=== PATIENT | male | born 1950 | race Asian ===

== ENCOUNTER 2017-07-30 11:38 | Inpatient (IN) | payer MEDICARE, OTHER ==
[~2017-07-30] VITALS: Ht 167.6 cm; Wt 85.2 kg
[~2017-07-30 11:38] MED LIST: ACET-784 PO; ASPI81 PO; ATOR40TA28 PO; BISA10S PR; CARV12.530 PO; FURO40I IV; HYDR20I IVP; INSLAN SQ; IPRNEB IH; ISOS30TA6 PO; LISI-660 PO; MOM30 PO; MORP2CAR IV; ONDA4 PO; PANT40TA25 PO
[2017-07-30] MEDS ORDERED: ALBU8.5H8 IH (12:15)
[2017-07-30] MEDS ORDERED: POTASSIUM CHLORIDE 20 MEQ ER TABLET PO ONE (13:15)
[2017-07-30] MEDS ORDERED: CloNIDine HCL 0.2 MG TABLET PO ONE (13:15)
[2017-07-30 14:22] LABS: EOSINOPHILS % (AUTO) 1.3 % (1.0-6.0); HEMATOCRIT 40.4 % (41-53); HEMOGLOBIN 14.3 g/dL (13.5-17.5); LYMPHOCYTES # (AUTO) 1.5 K/uL (1.0-4.8); LYMPHOCYTES % (AUTO) 20.4 % (22.0-44.0); MEAN CORPUSCULAR HGB CONC 35.3 G/dL (31.0-37.0); MEAN CORPUSCULAR VOLUME 88 fL (80-100); MONOCYTES # (AUTO) 0.4 K/uL (0.1-1.0); NEUTROPHILS # (AUTO) 5.2 K/uL (1.8-7.7); NEUTROPHILS % (AUTO) 71.3 % (40.0-70.0); PLATELET COUNT (AUTO) 205 K/uL (150-450); RED CELL DISTRIBUTION WIDTH 13.2 % (11.5-14.5)
[2017-07-30 14:46] LABS: B-TYPE NATRIURETIC PEPTIDE 1620 pg/mL (0-100)
[2017-07-30 14:57] LABS: ALANINE AMINOTRANSFERASE 31 U/L (12-78); ALBUMIN 1.7 g/dL (3.4-5.0); ALKALINE PHOSPHATASE 83 U/L (46-116); ANION GAP 1 mmol/L (8-16); ASPARTATE AMINOTRANSFERASE 33 U/L (15-37); BILIRUBIN,TOTAL 0.5 mg/dL (0.1-1.0); CALCIUM, TOTAL 7.5 mg/dL (8.8-10.5); CHLORIDE 98 mmol/L (98-107); CREATINE KINASE MB 2.5 ng/mL (0-5); CREATINE KINASE, TOTAL 192 U/L (39-308); CREATININE 1.02 mg/dL (0.60-1.30); GLOMERULAR FILTR. RATE CALC > 60 mL/min (>60); GLUCOSE,RANDOM 325 mg/dL (70-110); SODIUM SERUM 140 mmol/L (136-145); TOTAL PROTEIN, SERUM 5.4 g/dL (6.4-8.2); UREA NITROGEN, BLOOD 13 mg/dL (7-18)
[2017-07-30 15:04] LABS: POTASSIUM 2.4 mmol/L (3.5-5.1)
[2017-07-30 15:05] LABS: CARBON DIOXIDE 41 mmol/L (22-29)
[2017-07-30] MEDS ORDERED: INSULIN REGULAR, HUMAN 100 UNITS/ML IVP ONE (16:00)
[2017-07-30] MEDS ORDERED: FUROSEMIDE 40 MG/4 ML VIAL IVP ONE (16:00)
[2017-07-30] MEDS ORDERED: 0.9% SODIUM CHLORIDE 10 ML SYRINGE IVP PRN (16:15)
[2017-07-30] MEDS ORDERED: ACETAMINOPHEN 325 MG TABLET PO PRN (16:15)
[2017-07-30] MEDS ORDERED: ONDANSETRON HCL 4 MG/2 ML VIAL IVP PRN (16:15)
[2017-07-30 17:10] VITALS: BP 146/65
[2017-07-30] MEDS ORDERED: DEXTROSE 50%-WATER 25 GM/50 ML SYRINGE IVP PRN ×2 (18:45→21:00)
[2017-07-30] MEDS ORDERED: MAGNESIUM SULFATE 4 GM/WATER 100 ML IV PRN ×2 (18:45→21:00)
[2017-07-30] MEDS ORDERED: GLUCAGON,HUMAN RECOMBINANT 1 MG VIAL IM PRN (18:45)
[2017-07-30] MEDS ORDERED: POTASSIUM CHL 10 MEQ/WATER 50 ML IV PRN (18:45)
[2017-07-30] MEDS ORDERED: INSULIN LISPRO 100 UNITS/ML SQ PRN (18:45)
[2017-07-30] MEDS ORDERED: MAGNESIUM SULFATE 2 GM in DEXTROSE 5%-WATER 50 ML IV PRN ×2 (18:45→21:00)
[2017-07-30 19:21] LABS: ALBUMIN 1.7 g/dL (3.4-5.0)
[2017-07-30 19:23] LABS: POTASSIUM 2.3 mmol/L (3.5-5.1)
[2017-07-30] MEDS ORDERED: CARV12 PO (19:25)
[2017-07-30] MEDS ORDERED: ISOS10TA16 PO (19:25)
[2017-07-30] MEDS ORDERED: FURO20 PO (19:25)
[2017-07-30] MEDS ORDERED: VITAD1000 PO (19:25)
[2017-07-30] MEDS ORDERED: PANT40TA25 PO (19:25)
[2017-07-30] MEDS ORDERED: SODIUM CHLORIDE 0.9% 100 ML ONE (19:46)
[2017-07-30 20:09] VITALS: BP 149/76
[2017-07-30 20:13] LABS: GLUCOMETER DEV NAME(LOC) 5N 1P; GLUCOSE,POINT OF CARE 349 MG/DL (70-110)
[2017-07-30] MEDS ORDERED: POTASSIUM CHLORIDE 20 MEQ ER TABLET PO PRN (21:00)
[2017-07-30] MEDS ORDERED: MAGNESIUM OXIDE 400 MG TABLET PO PRN (21:00)
[2017-07-30] MEDS: CARVEDILOL 12.5 MG TABLET PO SCH (22:04)
[2017-07-30] MEDS: POTASSIUM CHLORIDE 20 MEQ ER TABLET PO PRN (22:05)
[2017-07-30] MEDS: INSULIN LISPRO 100 UNITS/ML SQ PRN (22:06)
[2017-07-30 23:03] LABS: GLUCOMETER DEV NAME(LOC) 5S 2Q; GLUCOSE,POINT OF CARE 245 MG/DL (70-110)
[2017-07-31] VITALS (7 sets, daily range): BP systolic 106–155; BP diastolic 49–96
[2017-07-31 02:27] LABS: MAGNESIUM 1.5 mg/dL (1.80-2.40)
[2017-07-31 02:39] LABS: POTASSIUM 2.7 mmol/L (3.5-5.1)
[2017-07-31] MEDS: POTASSIUM CHLORIDE 20 MEQ ER TABLET PO PRN ×2 (03:00→10:50)
[2017-07-31] MEDS: MAGNESIUM OXIDE 400 MG TABLET PO PRN ×3 (03:00→20:56)
[2017-07-31 06:33] LABS: GLUCOMETER DEV NAME(LOC) 5N 1P; GLUCOSE,POINT OF CARE 58 MG/DL (70-110)
[2017-07-31 06:33] LABS: GLUCOMETER DEV NAME(LOC) 5N 1P; GLUCOSE,POINT OF CARE 204 MG/DL (70-110)
[2017-07-31] MEDS: FUROSEMIDE 40 MG/4 ML VIAL IVP SCH (08:36)
[2017-07-31] MEDS: CARVEDILOL 12.5 MG TABLET PO SCH ×2 (08:47→20:56)
[2017-07-31] MEDS: ATORVASTATIN CALCIUM 40 MG TABLET PO SCH (08:47)
[2017-07-31] MEDS: PANTOPRAZOLE SODIUM 40 MG DR TABLET PO SCH (08:48)
[2017-07-31] MEDS: CHOLECALCIFEROL (VIT D3) 1,000 UNITS TABLET PO SCH (08:48)
[2017-07-31] MEDS: ASPIRIN 81 MG CHEWABLE TABLET PO SCH (08:48)
[2017-07-31] MEDS ORDERED: FUROSEMIDE 20 MG TABLET PO SCH (09:00)
[2017-07-31] MEDS ORDERED: LISINOPRIL 5 MG TABLET PO SCH (09:00)
[2017-07-31] MEDS: LISINOPRIL 10 MG TABLET PO SCH (09:51)
[2017-07-31] MEDS: ISOSORBIDE DINITRATE 10 MG TABLET PO SCH (10:49)
[2017-07-31] MEDS: INSULIN LISPRO 100 UNITS/ML SQ PRN ×3 (12:49→21:01)
[2017-07-31] MEDS: INSULIN GLARGINE,HUM.REC.ANLOG 100 UNITS/ML SQ SCH (20:58)
[2017-08-01 05:30] VITALS: BP 178/77
[2017-08-01 07:18] LABS: GLUCOMETER DEV NAME(LOC) 5S 2Q; GLUCOSE,POINT OF CARE 72 MG/DL (70-110)
[2017-08-01 07:18] LABS: GLUCOMETER DEV NAME(LOC) 5S 2Q; GLUCOSE,POINT OF CARE 374 MG/DL (70-110)
[2017-08-01 07:18] LABS: GLUCOMETER DEV NAME(LOC) 5S 2Q; GLUCOSE,POINT OF CARE 252 MG/DL (70-110)
[2017-08-01 07:34] VITALS: BP 152/76
[2017-08-01 07:57] LABS: EOSINOPHILS % (AUTO) 1.6 % (1.0-6.0); HEMATOCRIT 37.1 % (41-53); LYMPHOCYTES # (AUTO) 1.9 K/uL (1.0-4.8); LYMPHOCYTES % (AUTO) 24.8 % (22.0-44.0); MEAN CORPUSCULAR HEMOGLOBIN 30.7 pg (26.0-34.0); MEAN CORPUSCULAR VOLUME 88 fL (80-100); MONOCYTES # (AUTO) 0.5 K/uL (0.1-1.0); NEUTROPHILS # (AUTO) 5.1 K/uL (1.8-7.7); NEUTROPHILS % (AUTO) 66.6 % (40.0-70.0); PLATELET COUNT (AUTO) 193 K/uL (150-450); RED BLOOD CELL COUNT(AUTO) 4.23 MIL/uL (4.50-5.90)
[2017-08-01 08:18] LABS: ALANINE AMINOTRANSFERASE 20 U/L (12-78); ALBUMIN 1.4 g/dL (3.4-5.0); ALKALINE PHOSPHATASE 64 U/L (46-116); ANION GAP -1 mmol/L (8-16); ASPARTATE AMINOTRANSFERASE 18 U/L (15-37); BILIRUBIN,TOTAL 0.3 mg/dL (0.1-1.0); CALCIUM, TOTAL 7.2 mg/dL (8.8-10.5); CARBON DIOXIDE 39 mmol/L (22-29); CHLORIDE 100 mmol/L (98-107); CREATININE 0.88 mg/dL (0.60-1.30); GLOMERULAR FILTR. RATE CALC > 60 mL/min (>60); GLUCOSE,RANDOM 140 mg/dL (70-110); POTASSIUM 3.1 mmol/L (3.5-5.1); SODIUM SERUM 138 mmol/L (136-145); TOTAL PROTEIN, SERUM 4.6 g/dL (6.4-8.2); UREA NITROGEN, BLOOD 20 mg/dL (7-18)
[2017-08-01] MEDS: LISINOPRIL 10 MG TABLET PO SCH (08:35)
[2017-08-01] MEDS: ASPIRIN 81 MG CHEWABLE TABLET PO SCH (08:35)
[2017-08-01] MEDS: ATORVASTATIN CALCIUM 40 MG TABLET PO SCH (08:36)
[2017-08-01] MEDS: CHOLECALCIFEROL (VIT D3) 1,000 UNITS TABLET PO SCH (08:36)
[2017-08-01] MEDS: PANTOPRAZOLE SODIUM 40 MG DR TABLET PO SCH (08:36)
[2017-08-01] MEDS: MAGNESIUM OXIDE 400 MG TABLET PO PRN ×2 (08:37→13:05)
[2017-08-01] MEDS: FUROSEMIDE 40 MG/4 ML VIAL IVP SCH ×2 (08:38→14:06)
[2017-08-01] MEDS ORDERED: POTASSIUM CHLORIDE 20 MEQ ER TABLET PO SCH (09:00)
[2017-08-01] MEDS: CARVEDILOL 12.5 MG TABLET PO SCH ×2 (09:18→20:22)
[2017-08-01] MEDS: ISOSORBIDE DINITRATE 10 MG TABLET PO SCH (10:36)
[2017-08-01] MEDS: POTASSIUM CHLORIDE 20 MEQ ER TABLET PO PRN ×2 (10:36→14:06)
[2017-08-01 11:30] VITALS: BP 146/68
[2017-08-01] MEDS: INSULIN LISPRO 100 UNITS/ML SQ PRN ×2 (12:11→17:54)
[2017-08-01 12:53] LABS: GLUCOMETER DEV NAME(LOC) 5N 1P; GLUCOSE,POINT OF CARE 349 MG/DL (70-110)
[2017-08-01 15:38] VITALS: BP 143/66
[2017-08-01] MEDS ORDERED: KDUR20 PO (20:02)
[2017-08-01] MEDS ORDERED: FURO40 PO (20:03)
[2017-08-01 20:05] VITALS: BP 165/84
[2017-08-01] MEDS: INSULIN GLARGINE,HUM.REC.ANLOG 100 UNITS/ML SQ SCH (20:22)
[2017-08-01 22:23] LABS: GLUCOMETER DEV NAME(LOC) 5S 2Q; GLUCOSE,POINT OF CARE 196 MG/DL (70-110)
[2017-08-02 06:33] LABS: GLUCOMETER DEV NAME(LOC) 5N 1P; GLUCOSE,POINT OF CARE 236 MG/DL (70-110)
== END 2017-08-01 21:15 | disposition home or self-care (01) | DRG 640 ==
LOC: EMS 11:40 → 5N 16:01
PROVIDERS: ADMIT Hospitalist; ATTEND Hospitalist
DX: E87.6 Hypokalemia (principal); I50.43 Acute on chronic combined systolic (congestive) and diastolic (congestive) heart failure; J44.9 Chronic obstructive pulmonary disease, unspecified; E11.65 Type 2 diabetes mellitus with hyperglycemia; I11.0 Hypertensive heart disease with heart failure; I25.10 Atherosclerotic heart disease of native coronary artery without angina pectoris; K21.9 Gastro-esophageal reflux disease without esophagitis; E78.5 Hyperlipidemia, unspecified; F17.210 Nicotine dependence, cigarettes, uncomplicated; Z95.1 Presence of aortocoronary bypass graft; Z88.1 Allergy status to other antibiotic agents; Z79.82 Long term (current) use of aspirin; Z79.84 Long term (current) use of oral hypoglycemic drugs; Z79.899 Other long term (current) drug therapy
CPT/HCPCS: 71046; 83735; 84132; 93005; 93306; 96374; 96375; 99291; J1815; J1940; J3480; J7050

== ENCOUNTER 2019-08-26 13:46 | Inpatient (IN) | payer MEDICARE, OTHER ==
[~2019-08-26] VITALS: Ht 167.6 cm; Wt 61.4 kg
[~2019-08-26 13:46] MED LIST changes: +ALBU8HFA IH; +AMLO10TA7 PO; +ASPI-728 PO; -ASPI81 PO; -BISA10S PR; +BISA10SU11 PR; +CARV12 PO; -CARV12.530 PO; +CHOL100018 PO; +FURO40 PO; -FURO40I IV; -HYDR20I IVP; +HYDR25TA84 PO; -INSLAN SQ; -IPRNEB IH; +ISOS10TA16 PO; -ISOS30TA6 PO; -LISI-660 PO; -MOM30 PO; -MORP2CAR IV; -ONDA4 PO; +PANT-31 PO; -PANT40TA25 PO; +PRED10 PO; +PRED20 PO; +PRED5 PO
[2019-08-26] MEDS ORDERED: NITROGLYCERIN 2% (1 GM=INCH) PACKET TP ONE (15:00)
[2019-08-26] MEDS ORDERED: FUROSEMIDE 40 MG/4 ML VIAL IVP ONE (15:00)
[2019-08-26] MEDS ORDERED: ASPIRIN 325 MG TABLET PO ONE (15:00)
[2019-08-26 15:11] LABS: BASOPHILS % (AUTO) 0.6 % (0.0-2.0); EOSINOPHILS % (AUTO) 0.6 % (1.0-6.0); HEMATOCRIT 45.5 % (41-53); HEMOGLOBIN 15.3 g/dL (13.5-17.5); LYMPHOCYTES # (AUTO) 1.3 K/uL (1.0-4.8); LYMPHOCYTES % (AUTO) 16.8 % (22.0-44.0); MEAN CORPUSCULAR HGB CONC 33.6 G/dL (31.0-37.0); MEAN CORPUSCULAR VOLUME 89 fL (80-100); MONOCYTES # (AUTO) 0.5 K/uL (0.1-1.0); MONOCYTES % (AUTO) 6.1 % (2.0-9.0); NEUTROPHILS # (AUTO) 5.8 K/uL (1.8-7.7); NEUTROPHILS % (AUTO) 75.9 % (40.0-70.0); PLATELET COUNT (AUTO) 210 K/uL (150-450); RED BLOOD CELL COUNT(AUTO) 5.09 MIL/uL (4.50-5.90); RED CELL DISTRIBUTION WIDTH 13.6 % (11.5-14.5)
[2019-08-26 15:25] LABS: ALANINE AMINOTRANSFERASE 18 U/L (12-78); ALBUMIN 2.3 g/dL (3.4-5.0); ALKALINE PHOSPHATASE 95 U/L (46-116); ANION GAP 10 mmol/L (8-16); ASPARTATE AMINOTRANSFERASE 20 U/L (15-37); BILIRUBIN,TOTAL 0.5 mg/dL (0.1-1.0); CARBON DIOXIDE 28 mmol/L (22-29); CHLORIDE 99 mmol/L (98-107); CREATININE 2.14 mg/dL (0.60-1.30); GLOMERULAR FILTR. RATE CALC 31 mL/min (>60); LIPASE 157 U/L (73-393); SODIUM SERUM 137 mmol/L (136-145); TOTAL PROTEIN, SERUM 6.4 g/dL (6.4-8.2); UREA NITROGEN, BLOOD 24 mg/dL (7-18)
[2019-08-26 15:31] LABS: GLUCOSE,RANDOM 443 mg/dL (70-110); POTASSIUM 2.9 mmol/L (3.5-5.1)
[2019-08-26 15:36] LABS: B-TYPE NATRIURETIC PEPTIDE 3570 pg/mL (0-100)
[2019-08-26] MEDS ORDERED: INSULIN REGULAR, HUMAN 100 UNITS/ML IVP ONE (15:45)
[2019-08-26] MEDS ORDERED: POTASSIUM CHLORIDE 10% 40 MEQ/30 ML LIQUID UDCUP PO ONE ×2 (15:45→18:45)
[2019-08-26] MEDS ORDERED: ONDANSETRON HCL 4 MG/2 ML VIAL IVP PRN ×2 (16:00→18:45)
[2019-08-26] MEDS ORDERED: ACETAMINOPHEN 325 MG TABLET PO PRN ×2 (16:00→18:45)
[2019-08-26] MEDS ORDERED: 0.9% SODIUM CHLORIDE 10 ML SYRINGE IVP PRN (16:00)
[2019-08-26 16:03] LABS: LACTIC ACID 0.7 mmol/L (0.4-2.0)
[2019-08-26 16:11] LABS: APPEARANCE,URINE CLEAR (CLEAR); BILIRUBIN,URINE NEGATIVE (NEGATIVE); GLUCOSE, URINE (UA) >=1000 mg/dL (NEGATIVE); KETONES,URINE NEGATIVE (NEGATIVE); LEUKOCYTE ESTERASE ,URINE NEGATIVE (NEGATIVE); NITRATE,URINE NEGATIVE (NEGATIVE); OCCULT BLOOD,URINE MODERATE (NEGATIVE); PH,URINE 6.5 (5.0-8.0); PROTEIN,URINE SEE CONFIRM (NEGATIVE); UROBILINOGEN,URINE 0.2 mg/dL (<=1.0)
[2019-08-26 16:26] LABS: BACTERIA,URINE None Seen /HPF (None Seen); RBC,URINE None Seen /HPF (0-2); SULFOSALICYLIC ACID,URINE 3+ (Negative); WBC,URINE None Seen /HPF (0-5)
[2019-08-26 16:27] LABS: HYALINE CASTS, URINE 0-2 /LPF (None Seen)
[2019-08-26 17:37] LABS: GLUCOSE,POINT OF CARE 205 MG/DL (70-110)
[2019-08-26] MEDS ORDERED: DEXTROSE 50%-WATER 25 GM/50 ML SYRINGE IVP PRN (17:45)
[2019-08-26] MEDS: INSULIN LISPRO 100 UNITS/ML SQ PRN ×2 (17:49→21:11)
[2019-08-26] MEDS ORDERED: ZOLPIDEM TARTRATE 5 MG TABLET PO PRN (18:45)
[2019-08-26] MEDS ORDERED: HydrALAZINE HCL 20 MG/ML VIAL IVP PRN (18:45)
[2019-08-26] MEDS ORDERED: ALBUTEROL SULFATE HFA 90 MCG/PUFF 8 GM INHALER IH PRN (18:45)
[2019-08-26] MEDS ORDERED: MAGNESIUM HYDROXIDE SUSPENSION 30 ML UDCUP PO PRN (18:45)
[2019-08-26] MEDS ORDERED: HYDROCODONE/ACETAMINOPHEN 5-325 MG TABLET PO PRN (18:45)
[2019-08-26] MEDS ORDERED: MORPHINE SULFATE 2 MG/ML SYRINGE IVP PRN (18:45)
[2019-08-26] MEDS ORDERED: BISACODYL 10 MG RECTAL RECTAL SUPPOSITORY PR PRN (18:45)
[2019-08-26] MEDS ORDERED: CHOL100018 PO (18:48)
[2019-08-26] MEDS ORDERED: ISOS30TA6 PO (18:48)
[2019-08-26] MEDS ORDERED: CARV25 PO (18:48)
[2019-08-26] MEDS: DOCUSATE SODIUM 100 MG CAPSULE PO SCH (20:18)
[2019-08-26] MEDS: FUROSEMIDE 40 MG/4 ML VIAL IVP SCH (20:18)
[2019-08-26 20:19] LABS: GLUCOSE,POINT OF CARE 122 MG/DL (70-110)
[2019-08-26] MEDS: HydrALAZINE HCL 25 MG TABLET PO SCH (20:23)
[2019-08-26 21:03] VITALS: BP 158/81
[2019-08-26] MEDS: CARVEDILOL 25 MG TABLET PO SCH (21:06)
[2019-08-26 23:35] LABS: GLUCOMETER DEV NAME(LOC) 5N.1; GLUCOSE,POINT OF CARE 168 MG/DL (70-110)
[2019-08-27] VITALS (7 sets, daily range): BP systolic 100–161; BP diastolic 36–90
[2019-08-27] MEDS: CHOLECALCIFEROL (VIT D3) 1,000 UNITS [25 MCG] TABLET PO SCH (08:32)
[2019-08-27] MEDS: ATORVASTATIN CALCIUM 40 MG TABLET PO SCH (08:32)
[2019-08-27] MEDS: DOCUSATE SODIUM 100 MG CAPSULE PO SCH ×2 (08:33→21:07)
[2019-08-27] MEDS: HydrALAZINE HCL 25 MG TABLET PO SCH ×2 (08:33→21:00)
[2019-08-27] MEDS: FUROSEMIDE 40 MG/4 ML VIAL IVP SCH ×2 (08:33→21:00)
[2019-08-27] MEDS: AmLODIPine BESYLATE 10 MG TABLET PO SCH (08:33)
[2019-08-27] MEDS: HEPARIN SODIUM,PORCINE 5,000 UNITS/ML VIAL SQ SCH ×4 (08:33→23:51)
[2019-08-27] MEDS: ASPIRIN 81 MG CHEWABLE TABLET PO SCH (08:33)
[2019-08-27] MEDS: ISOSORBIDE MONONITRATE 30 MG ER TABLET PO SCH (08:34)
[2019-08-27] MEDS: CARVEDILOL 25 MG TABLET PO SCH ×2 (08:34→21:07)
[2019-08-27] MEDS: PANTOPRAZOLE SODIUM 40 MG DR TABLET PO SCH (09:00)
[2019-08-27] MEDS: INSULIN LISPRO 100 UNITS/ML SQ PRN ×2 (11:57→17:52)
[2019-08-27] MEDS ORDERED: IPRATROPIUM BROMIDE 0.5 MG/2.5 ML NEB SOLUTION NEB ONE (14:48)
[2019-08-27] MEDS ORDERED: ALBUTEROL SULFATE 2.5 MG/0.5 ML NEB SOLUTION NEB ONE (14:48)
[2019-08-27 15:27] LABS: EOSINOPHILS % (AUTO) 0.8 % (1.0-6.0); HEMATOCRIT 34.8 % (41-53); LYMPHOCYTES # (AUTO) 1.3 K/uL (1.0-4.8); LYMPHOCYTES % (AUTO) 18.4 % (22.0-44.0); MEAN CORPUSCULAR HEMOGLOBIN 30.7 pg (26.0-34.0); MEAN CORPUSCULAR HGB CONC 34.6 G/dL (31.0-37.0); MEAN CORPUSCULAR VOLUME 89 fL (80-100); MONOCYTES # (AUTO) 0.4 K/uL (0.1-1.0); MONOCYTES % (AUTO) 5.4 % (2.0-9.0); NEUTROPHILS # (AUTO) 5.2 K/uL (1.8-7.7); NEUTROPHILS % (AUTO) 74.4 % (40.0-70.0); PLATELET COUNT (AUTO) 167 K/uL (150-450); RED BLOOD CELL COUNT(AUTO) 3.92 MIL/uL (4.50-5.90); RED CELL DISTRIBUTION WIDTH 13.5 % (11.5-14.5)
[2019-08-27 15:38] LABS: CALCIUM, TOTAL 7.5 mg/dL (8.8-10.5); CREATININE 2.18 mg/dL (0.60-1.30); POTASSIUM 3.5 mmol/L (3.5-5.1)
[2019-08-27 15:46] LABS: ALBUMIN 1.3 g/dL (3.4-5.0); BILIRUBIN,TOTAL 0.3 mg/dL (0.1-1.0); MAGNESIUM 1.9 mg/dL (1.80-2.40); PHOSPHORUS 3.3 mg/dL (2.5-4.9); TOTAL PROTEIN, SERUM 4.2 g/dL (6.4-8.2)
[2019-08-27 18:15] LABS: GLUCOMETER DEV NAME(LOC) 5S.1; GLUCOSE,POINT OF CARE 109 MG/DL (70-110)
[2019-08-27 18:16] LABS: GLUCOMETER DEV NAME(LOC) 5S.1; GLUCOSE,POINT OF CARE 124 MG/DL (70-110)
[2019-08-27 18:16] LABS: GLUCOMETER DEV NAME(LOC) 5S.1; GLUCOSE,POINT OF CARE 226 MG/DL (70-110)
[2019-08-27 18:16] LABS: GLUCOMETER DEV NAME(LOC) 5S.1; GLUCOSE,POINT OF CARE 159 MG/DL (70-110)
[2019-08-28 00:15] VITALS: BP 142/72
[2019-08-28 05:31] VITALS: BP 112/69
[2019-08-28 06:14] LABS: BASOPHILS % (AUTO) 0.8 % (0.0-2.0); EOSINOPHILS % (AUTO) 1.1 % (1.0-6.0); HEMATOCRIT 35.9 % (41-53); HEMOGLOBIN 12.2 g/dL (13.5-17.5); LYMPHOCYTES # (AUTO) 1.9 K/uL (1.0-4.8); LYMPHOCYTES % (AUTO) 24.5 % (22.0-44.0); MEAN CORPUSCULAR HEMOGLOBIN 30.2 pg (26.0-34.0); MEAN CORPUSCULAR HGB CONC 33.8 G/dL (31.0-37.0); MEAN CORPUSCULAR VOLUME 89 fL (80-100); MONOCYTES # (AUTO) 0.5 K/uL (0.1-1.0); MONOCYTES % (AUTO) 6.8 % (2.0-9.0); NEUTROPHILS # (AUTO) 5.3 K/uL (1.8-7.7); NEUTROPHILS % (AUTO) 66.8 % (40.0-70.0); PLATELET COUNT (AUTO) 176 K/uL (150-450); RED BLOOD CELL COUNT(AUTO) 4.02 MIL/uL (4.50-5.90); RED CELL DISTRIBUTION WIDTH 13.8 % (11.5-14.5)
[2019-08-28] MEDS: INSULIN LISPRO 100 UNITS/ML SQ PRN ×4 (06:39→21:44)
[2019-08-28 06:43] LABS: GLUCOMETER DEV NAME(LOC) 5N.1; GLUCOSE,POINT OF CARE 139 MG/DL (70-110)
[2019-08-28 06:43] LABS: ALBUMIN 1.5 g/dL (3.4-5.0); BILIRUBIN,TOTAL 0.3 mg/dL (0.1-1.0); CALCIUM, TOTAL 7.6 mg/dL (8.8-10.5); CREATININE 2.35 mg/dL (0.60-1.30); MAGNESIUM 1.9 mg/dL (1.80-2.40); POTASSIUM 3.7 mmol/L (3.5-5.1); TOTAL PROTEIN, SERUM 4.6 g/dL (6.4-8.2)
[2019-08-28 06:46] LABS: GLUCOMETER DEV NAME(LOC) 5S.1; GLUCOSE,POINT OF CARE 203 MG/DL (70-110)
[2019-08-28 07:37] VITALS: BP 139/62
[2019-08-28] MEDS: FUROSEMIDE 40 MG/4 ML VIAL IVP SCH ×2 (08:20→21:29)
[2019-08-28] MEDS: PANTOPRAZOLE SODIUM 40 MG DR TABLET PO SCH (08:20)
[2019-08-28] MEDS: CHOLECALCIFEROL (VIT D3) 1,000 UNITS [25 MCG] TABLET PO SCH (08:21)
[2019-08-28] MEDS: ISOSORBIDE MONONITRATE 30 MG ER TABLET PO SCH (08:21)
[2019-08-28] MEDS: HEPARIN SODIUM,PORCINE 5,000 UNITS/ML VIAL SQ SCH ×2 (08:21→15:41)
[2019-08-28] MEDS: ATORVASTATIN CALCIUM 40 MG TABLET PO SCH (08:21)
[2019-08-28] MEDS: HydrALAZINE HCL 25 MG TABLET PO SCH ×2 (08:22→21:00)
[2019-08-28] MEDS: AmLODIPine BESYLATE 10 MG TABLET PO SCH (08:22)
[2019-08-28] MEDS: ASPIRIN 81 MG CHEWABLE TABLET PO SCH (08:22)
[2019-08-28] MEDS: CARVEDILOL 25 MG TABLET PO SCH ×2 (08:22→21:00)
[2019-08-28] MEDS: DOCUSATE SODIUM 100 MG CAPSULE PO SCH ×2 (08:25→21:29)
[2019-08-28 12:27] LABS: GLUCOMETER DEV NAME(LOC) 5N.1; GLUCOSE,POINT OF CARE 212 MG/DL (70-110)
[2019-08-28 13:00] VITALS: BP 128/62
[2019-08-28 15:47] VITALS: BP 102/52
[2019-08-28 20:00] VITALS: BP 126/70
[2019-08-28 23:52] LABS: CREATININE,URINE RANDOM 97.2 mg/dL (30.0-125.0)
[2019-08-29 00:10] VITALS: BP 126/64
[2019-08-29] MEDS: HEPARIN SODIUM,PORCINE 5,000 UNITS/ML VIAL SQ SCH ×2 (00:50→08:22)
[2019-08-29 01:19] LABS: GLUCOMETER DEV NAME(LOC) 5N.1; GLUCOSE,POINT OF CARE 153 MG/DL (70-110)
[2019-08-29 05:10] VITALS: BP 130/66
[2019-08-29 07:55] VITALS: BP 171/79
[2019-08-29 08:17] LABS: GLUCOMETER DEV NAME(LOC) 5S.1; GLUCOSE,POINT OF CARE 125 MG/DL (70-110)
[2019-08-29 08:17] LABS: GLUCOMETER DEV NAME(LOC) 5S.1; GLUCOSE,POINT OF CARE 150 MG/DL (70-110)
[2019-08-29 08:17] LABS: GLUCOMETER DEV NAME(LOC) 5S.1; GLUCOSE,POINT OF CARE 223 MG/DL (70-110)
[2019-08-29 08:17] LABS: GLUCOMETER DEV NAME(LOC) 5S.1; GLUCOSE,POINT OF CARE 77 MG/DL (70-110)
[2019-08-29] MEDS: FUROSEMIDE 40 MG/4 ML VIAL IVP SCH (08:21)
[2019-08-29] MEDS: CARVEDILOL 25 MG TABLET PO SCH (08:21)
[2019-08-29] MEDS: ATORVASTATIN CALCIUM 40 MG TABLET PO SCH (08:21)
[2019-08-29] MEDS: CHOLECALCIFEROL (VIT D3) 1,000 UNITS [25 MCG] TABLET PO SCH (08:21)
[2019-08-29] MEDS: PANTOPRAZOLE SODIUM 40 MG DR TABLET PO SCH (08:21)
[2019-08-29] MEDS: ASPIRIN 81 MG CHEWABLE TABLET PO SCH (08:21)
[2019-08-29] MEDS: ISOSORBIDE MONONITRATE 30 MG ER TABLET PO SCH (08:21)
[2019-08-29] MEDS: AmLODIPine BESYLATE 10 MG TABLET PO SCH (08:21)
[2019-08-29] MEDS: DOCUSATE SODIUM 100 MG CAPSULE PO SCH (08:22)
[2019-08-29] MEDS: HydrALAZINE HCL 25 MG TABLET PO SCH (08:24)
[2019-08-29 09:31] LABS: BASOPHILS % (AUTO) 0.7 % (0.0-2.0); EOSINOPHILS % (AUTO) 1.2 % (1.0-6.0); HEMOGLOBIN 14.2 g/dL (13.5-17.5); LYMPHOCYTES # (AUTO) 0.8 K/uL (1.0-4.8); LYMPHOCYTES % (AUTO) 11.7 % (22.0-44.0); MEAN CORPUSCULAR HEMOGLOBIN 30.4 pg (26.0-34.0); MEAN CORPUSCULAR HGB CONC 33.9 G/dL (31.0-37.0); MEAN CORPUSCULAR VOLUME 90 fL (80-100); MONOCYTES # (AUTO) 0.3 K/uL (0.1-1.0); MONOCYTES % (AUTO) 4.7 % (2.0-9.0); NEUTROPHILS # (AUTO) 5.9 K/uL (1.8-7.7); NEUTROPHILS % (AUTO) 81.7 % (40.0-70.0); PLATELET COUNT (AUTO) 194 K/uL (150-450); RED BLOOD CELL COUNT(AUTO) 4.67 MIL/uL (4.50-5.90)
[2019-08-29 09:46] LABS: BILIRUBIN,TOTAL 0.3 mg/dL (0.1-1.0); CALCIUM, TOTAL 7.7 mg/dL (8.8-10.5); CREATININE 2.58 mg/dL (0.60-1.30); POTASSIUM 3.9 mmol/L (3.5-5.1); TOTAL PROTEIN, SERUM 5.7 g/dL (6.4-8.2)
[2019-08-29 09:54] LABS: HEMOGLOBIN A1C 11.6 % (3.8-5.6)
[2019-08-29] MEDS: INSULIN LISPRO 100 UNITS/ML SQ PRN (12:07)
[2019-08-29 12:56] VITALS: BP 125/62
[2019-08-29] MEDS ORDERED: INSLAN SQ (13:36)
[2019-08-29] MEDS ORDERED: GLIP5 PO (13:37)
[2019-08-29] MEDS ORDERED: FUROSEMIDE 40 MG/4 ML VIAL IVP SCH (16:00)
[2019-08-29 17:52] LABS: GLUCOMETER DEV NAME(LOC) 5S.1; GLUCOSE,POINT OF CARE 239 MG/DL (70-110)
== END 2019-08-29 14:30 | disposition hospice, home (50) | DRG 291 ==
LOC: EMS 13:58 → 5S 18:40
PROVIDERS: ADMIT Internal Medicine; ATTEND Internal Medicine
DX: I13.0 Hypertensive heart and chronic kidney disease with heart failure and stage 1 through stage 4 chronic kidney disease, or unspecified chronic kidney disease (principal); I50.33 Acute on chronic diastolic (congestive) heart failure; E44.1 Mild protein-calorie malnutrition; N17.9 Acute kidney failure, unspecified; E11.22 Type 2 diabetes mellitus with diabetic chronic kidney disease; E78.5 Hyperlipidemia, unspecified; I16.0 Hypertensive urgency; E87.6 Hypokalemia; E11.65 Type 2 diabetes mellitus with hyperglycemia; N18.9 Chronic kidney disease, unspecified; J45.909 Unspecified asthma, uncomplicated; J44.9 Chronic obstructive pulmonary disease, unspecified; I25.10 Atherosclerotic heart disease of native coronary artery without angina pectoris; I25.5 Ischemic cardiomyopathy; K21.9 Gastro-esophageal reflux disease without esophagitis; Z68.22 Body mass index [BMI] 22.0-22.9, adult; Z88.8 Allergy status to other drugs, medicaments and biological substances; Z91.14 Patient's other noncompliance with medication regimen; Z51.5 Encounter for palliative care; Z95.1 Presence of aortocoronary bypass graft; Z87.891 Personal history of nicotine dependence; Z79.899 Other long term (current) drug therapy; Z79.82 Long term (current) use of aspirin; Z68.21 Body mass index [BMI] 21.0-21.9, adult
CPT/HCPCS: 70450; 76770; 82043; 82271; 82570; 83036; 83605; 83735; 84100; 84156; 84300; 84540; 93005; 93306; 97162; G0378; G0480; J0360; J1644; J1815; J1940; J3535